=== PATIENT | female | born 1960 | race Caucasian/White ===

== ENCOUNTER → 2023-02-01 13:49 | Outpatient (BNVA) | payer BC, SELFPAY | PROVIDERS: PCP Nurse Practitioner; Visit Provider Nurse Practitioner Family | DX: S42.91XA Fracture of right shoulder girdle, part unspecified, initial encounter for closed fracture (principal); X58.XXXA Exposure to other specified factors, initial encounter | CPT/HCPCS: 73030 ==

== ENCOUNTER → 2023-02-27 13:57 | Outpatient (BNVA) | payer BC, SELFPAY | PROVIDERS: PCP Nurse Practitioner; Visit Provider Orthopaedic Surgery | DX: S62.91XA Unspecified fracture of right hand, initial encounter for closed fracture (principal); X58.XXXA Exposure to other specified factors, initial encounter | CPT/HCPCS: 73030 ==

== ENCOUNTER → 2023-03-26 14:38 | Outpatient (BNVA) | payer BC, SELFPAY | PROVIDERS: PCP Nurse Practitioner; Visit Provider Physician Assistant | DX: S42.201D Unspecified fracture of upper end of right humerus, subsequent encounter for fracture with routine healing; X58.XXXD Exposure to other specified factors, subsequent encounter | CPT/HCPCS: 73030 ==

== ENCOUNTER 2023-04-07 06:00 | Outpatient (RCR) | payer BC, SELFPAY | END 2023-04-24 23:59 | disposition home or self-care (01) | LOC: MPT 06:00 | PROVIDERS: Visit Provider Physician Assistant | DX: S42.309D Unspecified fracture of shaft of humerus, unspecified arm, subsequent encounter for fracture with routine healing (principal); X58.XXXD Exposure to other specified factors, subsequent encounter | CPT/HCPCS: 97110; 97161; G0283 ==

== ENCOUNTER 2023-04-25 06:00 | Outpatient (RCR) | payer BC, SELFPAY | END 2023-05-24 23:59 | disposition home or self-care (01) | LOC: MPT 06:00 | PROVIDERS: Visit Provider Physician Assistant | DX: S42.309D Unspecified fracture of shaft of humerus, unspecified arm, subsequent encounter for fracture with routine healing (principal); X58.XXXD Exposure to other specified factors, subsequent encounter | CPT/HCPCS: 97110; 97140; G0283 ==

== ENCOUNTER → 2023-05-06 14:10 | Outpatient (BNVA) | payer BC, SELFPAY | PROVIDERS: Visit Provider Physician Assistant | DX: S42.301D Unspecified fracture of shaft of humerus, right arm, subsequent encounter for fracture with routine healing; X58.XXXD Exposure to other specified factors, subsequent encounter | CPT/HCPCS: 73030 ==

== ENCOUNTER 2023-05-25 06:00 | Outpatient (RCR) | payer MEDICARE, OTHER, SELFPAY | END 2023-06-24 23:59 | disposition home or self-care (01) | LOC: MPT 06:00 | PROVIDERS: Visit Provider Physician Assistant | DX: S42.309D Unspecified fracture of shaft of humerus, unspecified arm, subsequent encounter for fracture with routine healing (principal); X58.XXXD Exposure to other specified factors, subsequent encounter | CPT/HCPCS: 97110; 97140; G0283 ==

== ENCOUNTER 2023-06-25 06:00 | Outpatient (RCR) | payer MEDICARE, OTHER, SELFPAY | END 2023-07-24 23:59 | disposition home or self-care (01) | LOC: MPT 06:00 | PROVIDERS: Visit Provider Physician Assistant | DX: S42.309D Unspecified fracture of shaft of humerus, unspecified arm, subsequent encounter for fracture with routine healing (principal); X58.XXXD Exposure to other specified factors, subsequent encounter | CPT/HCPCS: 97110; 97140; G0283 ==

== ENCOUNTER 2023-07-25 06:00 | Outpatient (RCR) | payer MEDICARE, OTHER, SELFPAY | END 2023-08-24 23:59 | disposition home or self-care (01) | LOC: MPT 06:00 | PROVIDERS: Visit Provider Physician Assistant | DX: S42.309D Unspecified fracture of shaft of humerus, unspecified arm, subsequent encounter for fracture with routine healing (principal); X58.XXXD Exposure to other specified factors, subsequent encounter | CPT/HCPCS: 97110; 97140; G0283 ==